=== PATIENT | female | born 1975 | race Caucasian/White ===

== ENCOUNTER → 2019-04-12 | Day surgery (SDC) | payer OTHER ==
[2019-04-10 13:42] LABS: Basophils # (auto) 0.1 uL; Basophils % (auto) 0.6 % (0.0-2.0); Eosinophils # (auto) 0.1 uL; Eosinophils % (auto) 1.4 % (0.0-7.0); Hematocrit 42.2 % (36.0-46.0); Hemoglobin 13.9 g/dL (12.2-16.2); Lymphocytes # (auto) 2.7 uL; Lymphocytes % (auto) 28.3 % (10.0-50.0); Mean Corpuscular Hemoglobin 28.5 pg (28.0-32.0); Mean Corpuscular Volume 86.2 fL (80.0-100.0); Monocytes # (auto) 0.7 uL; Monocytes % (auto) 7.8 % (0.0-12.0); Neutrophils # (auto) 5.9 uL; Neutrophils % (auto) 61.9 % (37.0-80.0); Platelet Count (auto) 417 10^3/uL (140-450); Red Blood Cells 4.89 10^6/uL (4.0-5.20); Red Cell Distribution Width 13.4 % (11.8-14.3); White Blood Cell 9.5 10^3/uL (4.4-10.8)
[2019-04-10 13:47] LABS: Urine Bacteria NONE SEEN /hpf (None Seen); Urine Blood Negative /uL (Negative); Urine Specific Gravity 1.006 (1.001-1.035); Urine WBC 8 /hpf (0 - 5)
[2019-04-10 14:00] LABS: INR 1.13 (0.9-1.15); Partial Thromboplastin Time 26.5 sec (23.64-32.05)
[2019-04-10 14:10] LABS: Potassium 3.9 mmol/L (3.5-5.1)
[2019-04-10 14:16] LABS: Albumin 4.1 g/dL (3.4-5.0); BUN/Creatinine Ratio 16.3; Bilirubin, Total 0.4 mg/dL (0.2-1.0); Calcium 9.9 mg/dL (8.5-10.1); Total Protein 8.7 g/dL (6.4-8.2)
[~2019-04-12] VITALS: Ht 157.5 cm; Wt 104.3 kg
[~2019-04-12] MED LIST: ACET650T92 PO; ASPI-404 PO; ATEN-60 PO; ATOR20TA50 PO; BREX1TAB4 PO; BUPR300T28 PO; CETI1TAB36 PO; DULO30CA PO; FISHCAP PO; MIDAZOLAM HCL 1MG/1ML-2 ML VIAL ONE; NEOMYCIN-BACITRACIN-POLYM 15GM TOP OINT TOP ONE; ONDANSETRON HCL 4 MG/2 ML VIAL IV PRN; PANT40TA2 PO; PROPOFOL 10 MG/ML 20 ML IV ONE; ROPIVACAINE 0.5% (5MG/ML) 20ML AMPULE IJ ONE; SUCCINYLCHOLINE CHLORIDE 20 MG/ML 10ML VIAL IV ONE; VITA400T4 PO; ceFAZolin 1GM/50ML 50 ML IV ONE; ePHEDrine SULFATE 50 MG/ML AMP IV PRN; fentaNYL CITRATE 100 MCG/2 ML VL IV PRN; fentaNYL CITRATE 100 MCG/2 ML VL ONE; hydrALAZINE HCL 20 MG/ML VL IV PRN
[2019-04-12 08:25] VITALS: BP 122/74
== END | disposition home or self-care (01) ==
LOC: SUR 06:07
PROVIDERS: ATTEND Podiatrist Foot & Ankle Surgery
DX: M20.5X2 Other deformities of toe(s) (acquired), left foot (principal); E66.01 Morbid (severe) obesity due to excess calories; I10 Essential (primary) hypertension; E78.00 Pure hypercholesterolemia, unspecified; F32.9 Major depressive disorder, single episode, unspecified; K21.9 Gastro-esophageal reflux disease without esophagitis; F41.9 Anxiety disorder, unspecified; Z68.41 Body mass index [BMI] 40.0-44.9, adult; Z98.890 Other specified postprocedural states; Z79.82 Long term (current) use of aspirin
CPT/HCPCS: 28289; 36415; 80053; 81001; 84702; 85025; 85610; 85730; 88304; 88311; J0330; J0690; J2250; J2704; J2795; J3010; Q4139